=== PATIENT | female | born 2000 | race Two or more races ===

== ENCOUNTER 2018-01-05 13:28 | Emergency (ER) | payer BC, MEDICAID ==
[~2018-01-05] VITALS: Ht 162.6 cm; Wt 47.2 kg
[2018-01-05 13:35] VITALS: Ht 162.6 cm; Wt 47.2 kg
[2018-01-05 14:32] LABS: CALCIUM 8.1 mg/dL (8.5-10.1); CARBON DIOXIDE 27.6 mmol/L (21-32); CHLORIDE SERUM 104 mmol/L (98-107); CREATININE SERUM 0.5 mg/dL (0.6-1.0); GFR1 > 60 mL/min; GLUCOSE SERUM 95 mg/dL (74-106); POTASSIUM SERUM 3.4 mmol/L (3.5-5.1); SODIUM SERUM 136 mmol/L (136-145)
[2018-01-05 14:37] LABS: ALBUMIN 3.7 g/dL (3.4-5.0); ALKALINE PHOSPHATASE 79 U/L (46-116); ALT/SGPT 26 U/L (14-59); AST/SGOT 26 U/L (15-37); BILIRUBIN TOTAL 0.6 mg/dL (0.20-1.00); LIPASE 119 IU/L (73-393); TOTAL PROTEIN, SERUM 6.7 g/dL (6.4-8.2)
[2018-01-05 14:52] LABS: BASOPHIL % 0.8 % (0-2); PLATELET COUNT 219 x10^3mcL (130-400); RED CELL DISTRIBUTION WIDTH 13.1 % (11.5-14.5)
[2018-01-05 15:59] VITALS: BP 131/78
== END 2018-01-05 15:59 | disposition home or self-care (01) ==
LOC: ED 13:28
PROVIDERS: Emergency Medicine
PROC: 3E033NZ Introduction of Analgesics, Hypnotics, Sedatives into Peripheral Vein, Percutaneous Approach (ICD-10-PCS; principal; 2018-01-05)
PROC: 3E033GC Introduction of Other Therapeutic Substance into Peripheral Vein, Percutaneous Approach (ICD-10-PCS; 2018-01-05)
PROC: BW211ZZ Computerized Tomography (CT Scan) of Abdomen and Pelvis using Low Osmolar Contrast (ICD-10-PCS; 2018-01-05)
DX: R10.9 Unspecified abdominal pain (principal)
CPT/HCPCS: J1885; J7030; Q9967

== ENCOUNTER 2018-01-24 13:17 | Emergency (ER) | payer BC, MEDICAID ==
[~2018-01-24] VITALS: Ht 152.4 cm; Wt 48.1 kg
[2018-01-24 13:34] VITALS: Ht 152.4 cm; Wt 48.1 kg
[2018-01-24 16:20] VITALS: BP 118/72
== END 2018-01-24 16:20 | disposition home or self-care (01) ==
LOC: ED 13:17
DX: M54.5 Low back pain (principal); M41.9 Scoliosis, unspecified; J45.909 Unspecified asthma, uncomplicated

== ENCOUNTER 2018-02-23 12:46 | Emergency (ER) | payer BC, MEDICAID ==
[~2018-02-23] VITALS: Ht 162.6 cm; Wt 46.3 kg
[2018-02-23 13:05] VITALS: Ht 162.6 cm; Wt 46.3 kg
[2018-02-23 14:02] LABS: BASOPHIL % 0.5 % (0-2); PLATELET COUNT 240 x10^3mcL (130-400); RED CELL DISTRIBUTION WIDTH 12.2 % (11.5-14.5)
[2018-02-23 14:19] VITALS: BP 102/59
== END 2018-02-23 14:19 | disposition home or self-care (01) ==
LOC: ED 12:46
PROVIDERS: Emergency Medicine
DX: N93.8 Other specified abnormal uterine and vaginal bleeding (principal); J45.909 Unspecified asthma, uncomplicated
CPT/HCPCS: 36415

== ENCOUNTER 2018-07-11 08:47 | Emergency (ER) | payer BC, MEDICAID ==
[~2018-07-11] VITALS: Ht 162.6 cm; Wt 46.4 kg
[2018-07-11 08:50] VITALS: Ht 162.6 cm; Wt 46.4 kg
[2018-07-11 11:28] VITALS: BP 90/56
== END 2018-07-11 11:28 | disposition home or self-care (01) ==
LOC: ED 08:47
DX: G43.909 Migraine, unspecified, not intractable, without status migrainosus (principal); J45.909 Unspecified asthma, uncomplicated
CPT/HCPCS: J1200; J2765; J7030

== ENCOUNTER 2018-07-12 21:22 | Emergency (ER) | payer BC, MEDICAID ==
[~2018-07-12] VITALS: Ht 162.6 cm; Wt 48.1 kg
[2018-07-12 21:37] VITALS: BP 137/85; Ht 162.6 cm; Wt 48.1 kg
== END 2018-07-12 22:18 | disposition home or self-care (01) ==
LOC: ED 21:22
DX: K60.2 Anal fissure, unspecified (principal); K62.5 Hemorrhage of anus and rectum; J45.909 Unspecified asthma, uncomplicated; Z90.89 Acquired absence of other organs

== ENCOUNTER 2018-07-22 19:43 | Emergency (ER) | payer BC, MEDICAID ==
[~2018-07-22] VITALS: Ht 162.6 cm; Wt 48.3 kg
[2018-07-22 20:14] VITALS: Ht 162.6 cm; Wt 48.3 kg
[2018-07-22 22:51] VITALS: BP 120/68
== END 2018-07-22 22:51 | disposition home or self-care (01) ==
LOC: ED 19:43
DX: G43.909 Migraine, unspecified, not intractable, without status migrainosus (principal); J45.909 Unspecified asthma, uncomplicated; Z90.89 Acquired absence of other organs
CPT/HCPCS: J1200; J1885; J2765; J7030

== ENCOUNTER 2018-07-24 09:22 | Emergency (ER) | payer BC, MEDICAID ==
[~2018-07-24] VITALS: Ht 162.6 cm; Wt 48.5 kg
[2018-07-24 09:28] VITALS: Ht 162.6 cm; Wt 48.5 kg
[2018-07-24 10:33] VITALS: BP 109/70
== END 2018-07-24 12:02 | disposition home or self-care (01) ==
LOC: ED 09:22
DX: R51 Headache (principal); R11.2 Nausea with vomiting, unspecified; H53.149 Visual discomfort, unspecified; J45.909 Unspecified asthma, uncomplicated; G43.909 Migraine, unspecified, not intractable, without status migrainosus; Z90.89 Acquired absence of other organs
CPT/HCPCS: J0780; J1200; J7030; Q0162

== ENCOUNTER 2018-09-16 08:46 | Emergency (ER) | payer BC, MEDICAID ==
[~2018-09-16] VITALS: Ht 162.6 cm; Wt 45.0 kg
[2018-09-16 08:50] VITALS: Ht 162.6 cm; Wt 45.0 kg
[2018-09-16 11:38] VITALS: BP 106/57
== END 2018-09-16 11:38 | disposition home or self-care (01) ==
LOC: ED 08:46
DX: G43.909 Migraine, unspecified, not intractable, without status migrainosus (principal); J45.909 Unspecified asthma, uncomplicated; Z90.89 Acquired absence of other organs
CPT/HCPCS: J0780; J1885

== ENCOUNTER 2018-11-15 09:27 | Emergency (ER) | payer BC, MEDICAID ==
[~2018-11-15] VITALS: Ht 162.6 cm; Wt 45.4 kg
[2018-11-15 09:29] VITALS: Ht 162.6 cm; Wt 45.4 kg
[2018-11-15 10:36] VITALS: BP 87/53
== END 2018-11-15 11:11 | disposition home or self-care (01) ==
LOC: ED 09:27
DX: G43.909 Migraine, unspecified, not intractable, without status migrainosus (principal); J45.909 Unspecified asthma, uncomplicated; Z98.890 Other specified postprocedural states
CPT/HCPCS: J3030

== ENCOUNTER 2018-11-25 20:23 | Emergency (ER) | payer BC, MEDICAID ==
[~2018-11-25] VITALS: Ht 162.6 cm; Wt 46.3 kg
[2018-11-25 20:31] VITALS: Ht 162.6 cm; Wt 46.3 kg
[2018-11-25 21:50] VITALS: BP 106/66
== END 2018-11-25 21:50 | disposition home or self-care (01) ==
LOC: ED 20:23
DX: G43.909 Migraine, unspecified, not intractable, without status migrainosus (principal); J45.909 Unspecified asthma, uncomplicated; Z90.89 Acquired absence of other organs
CPT/HCPCS: J1885; J8597

== ENCOUNTER 2018-11-26 10:46 | Emergency (ER) | payer BC, MEDICAID ==
[~2018-11-26] VITALS: Ht 157.5 cm; Wt 46.3 kg
[2018-11-26 10:53] VITALS: BP 115/72; Ht 157.5 cm; Wt 46.3 kg
== END 2018-11-26 14:20 | disposition left against medical advice (07) ==
LOC: ED 10:46
DX: Z53.21 Procedure and treatment not carried out due to patient leaving prior to being seen by health care provider (principal)

== ENCOUNTER 2019-02-17 13:24 | Emergency (ER) | payer BC, MEDICAID ==
[~2019-02-17] VITALS: Ht 162.6 cm; Wt 44.5 kg
[2019-02-17 13:28] VITALS: Ht 162.6 cm; Wt 44.5 kg
[2019-02-17 16:06] LABS: BASOPHIL % 0.7 % (0-2); PLATELET COUNT 200 x10^3mcL (130-400); RED CELL DISTRIBUTION WIDTH 12.6 % (11.5-14.5)
[2019-02-17 16:18] LABS: CALCIUM 8.6 mg/dL (8.5-10.1); CARBON DIOXIDE 26.5 mmol/L (21-32); CHLORIDE SERUM 103 mmol/L (98-107); CREATININE SERUM 0.6 mg/dL (0.6-1.0); GFR1 > 60 mL/min; GLUCOSE SERUM 89 mg/dL (74-106); POTASSIUM SERUM 4.1 mmol/L (3.5-5.1); SODIUM SERUM 141 mmol/L (136-145)
[2019-02-17 16:23] LABS: ALBUMIN 4.1 g/dL (3.4-5.0); ALKALINE PHOSPHATASE 76 U/L (46-116); ALT/SGPT 39 U/L (14-59); AST/SGOT 30 U/L (15-37); BILIRUBIN TOTAL 0.49 mg/dL (0.20-1.00); TOTAL PROTEIN, SERUM 7.4 g/dL (6.4-8.2)
[2019-02-17 16:44] VITALS: BP 99/61
[2019-02-17 17:02] LABS: AMPHETAMINE QUAL UR NONE DETECTED (See below)
== END 2019-02-17 17:03 | disposition home or self-care (01) ==
LOC: ED 13:24
PROVIDERS: Emergency Medicine
DX: R07.89 Other chest pain (principal); J45.909 Unspecified asthma, uncomplicated; G43.909 Migraine, unspecified, not intractable, without status migrainosus; Z90.49 Acquired absence of other specified parts of digestive tract
CPT/HCPCS: 36415; 85378; J1885

== ENCOUNTER → 2019-02-18 | Outpatient (CLI) | payer MEDICAID, BC | END | disposition home or self-care (01) | LOC: CA 12:57 | DX: R06.02 Shortness of breath (principal) ==

== ENCOUNTER 2019-02-27 10:11 | Emergency (ER) | payer BC, MEDICAID ==
[~2019-02-27] VITALS: Ht 162.6 cm; Wt 45.4 kg
[2019-02-27 10:30] VITALS: Ht 162.6 cm; Wt 45.4 kg
[2019-02-27 13:07] VITALS: BP 86/62
== END 2019-02-27 13:07 | disposition home or self-care (01) ==
LOC: ED 10:11
DX: G43.909 Migraine, unspecified, not intractable, without status migrainosus (principal); J45.909 Unspecified asthma, uncomplicated; Z90.89 Acquired absence of other organs
CPT/HCPCS: J1200; J1885; J2765